=== PATIENT | female | born 1965 | race Caucasian/White ===

== ENCOUNTER → 2016-07-05 | Outpatient (CLI) | payer BC ==
[~2016-07-05] MED LIST: ATENOLOL PO; AUGMENTIN PO; BIRTH CONTROL PO; FISH OIL 1,2001 EAC1 PO; LEXAPRO PO; LISINOPRIL-HCTZ1 T19 PO; PAXIL10 MG PO; PREMPRO PO; PROMETRIUM PO
--- NOTE | ~2016-07-05 | EKG ---
PATIENT: MANAS RAPP UNIT #: [id number] Ventricular Rate: 83 BPM Atrial Rate: 83 BPM P-R Interval: 150 ms QRS Duration: 82 ms Q-T Interval: 386 ms QTC Calculation(Bezet): 453 ms P Mcpherson: 72 degrees Calculated R Mcpherson: 36 degrees Calculated T Mcpherson: 42 degrees Diagnosis Line: Normal sinus rhythm Diagnosis Line: Possible Left atrial enlargement Diagnosis Line: Borderline ECG Diagnosis Line: No previous ECGs available Diagnosis Line: Confirmed by FRACISCO JAMES MD ([id number]) on 07/06/2016 Diagnosis Line: 7:55:14 PM INTERPRETING MD: ERIKA LÓPEZ
== END | disposition home or self-care (01) ==
LOC: CEKG 10:20
DX: R00.2 Palpitations (principal); R00.0 Tachycardia, unspecified
CPT/HCPCS: 93005